=== PATIENT | female | born 1960 | race Caucasian/White ===

== ENCOUNTER → 2017-03-21 | Outpatient (CLI) | payer OTHER | END | disposition home or self-care (01) | LOC: GI 07:14 | DX: K92.2 Gastrointestinal hemorrhage, unspecified (principal); K21.9 Gastro-esophageal reflux disease without esophagitis; Z98.890 Other specified postprocedural states ==

== ENCOUNTER → 2020-08-03 | Outpatient (CLI) | payer OTHER ==
[~2020-08-03] MED LIST: ASA81BEC PO; BREO ELLIPTA 11 EACH INH; CALCIUM 600 MG1 EACH PO; FLECAINIDE ACE100 MG PO; FLONASE 0.05%50 MCG NARES; HAIR, SKIN & N1 EAC2 PO; LIALDA1.2 GM PO; METOPROLOL SUCC50 MG PO; MULTI VITAMIN1 EACH PO; NEURONTIN100 MG PO; PRILOSEC OTC20 MG PO; PROAIR HFA8.5 GM INH; SIMVASTATIN40 MG PO; SYNTHROID50 MCG PO; XANAX 0.5 MG0.5 M1 PO; ZYRTEC10 M4 PO; [UNRECOGNIZED DRUG - OTHER] PO
== END ==
LOC: LAB 10:34
PROVIDERS: ATTEND Internal Medicine Gastroenterology
DX: Z01.812 Encounter for preprocedural laboratory examination (principal); Z20.822 Contact with and (suspected) exposure to COVID-19

== ENCOUNTER → 2020-08-08 | Outpatient (CLI) | payer OTHER ==
[~2020-08-08] VITALS: Ht 167.6 cm; Wt 98.9 kg
== END | disposition home or self-care (01) ==
LOC: GI 06:55
PROVIDERS: ATTEND Internal Medicine Gastroenterology
DX: K62.5 Hemorrhage of anus and rectum (principal); K64.8 Other hemorrhoids; I10 Essential (primary) hypertension; E78.00 Pure hypercholesterolemia, unspecified; E03.9 Hypothyroidism, unspecified; J43.9 Emphysema, unspecified; K21.9 Gastro-esophageal reflux disease without esophagitis; Z98.890 Other specified postprocedural states; Z79.899 Other long term (current) drug therapy; Z90.710 Acquired absence of both cervix and uterus; Z96.653 Presence of artificial knee joint, bilateral; Z87.891 Personal history of nicotine dependence
CPT/HCPCS: 62110; 62900